=== PATIENT | female | born 1985 ===

== ENCOUNTER 2021-08-12 20:26 | Emergency (ER) ==
[~2021-08-12] VITALS: Ht 152.4 cm; Wt 50.4 kg
[2021-08-12 20:27] VITALS: BP 101/60
[2021-08-12] MEDS ORDERED: LEVO125T4 PO (20:52)
[2021-08-12] MEDS ORDERED: PROV100T25 PO (20:52)
[2021-08-12] MEDS ORDERED: ABIL1TAB13 PO (20:52)
[2021-08-12] MEDS ORDERED: BRIN10TA4 PO (20:52)
[2021-08-12] MEDS ORDERED: KLON2TAB PO (20:52)
[2021-08-12] MEDS ORDERED: SUBO8MIS SL (20:52)
== END 2021-08-13 00:42 | disposition left against medical advice (07) ==
LOC: M ED 20:26
DX: Z53.21 Procedure and treatment not carried out due to patient leaving prior to being seen by health care provider (principal)